=== PATIENT | female | born 1955 | race Caucasian/White ===

== ENCOUNTER 2021-01-18 13:01 | Emergency (ER) | payer OTHER ==
[2021-01-18 15:59] LABS: BASOPHIL 0.9 % (0-2); EOSINOPHIL 0 % (0-7); HCT 44.1 % (37.0-47.0); HGB 14.1 g/dl (12.5-16.0); LYMPHOCYTE 21.2 % (15-48); MCH 29.9 pg (25.0-31.0); MCV 93.6 fL (78.0-100.0); MONOCYTE 13.4 % (0-12); MPV 8.9 fL (6.0-9.5); NEUTROPHIL 63.3 % (41-80); NRBC 0; PLT 162 K/uL (150-400); RBC 4.71 M/uL (4.20-5.40); RDW 15.1 % (11.5-14.0); WBC 3.4 K/uL (4.0-10.5)
[2021-01-18 16:23] LABS: ALBUMIN 3.3 g/dL (3.4-5.0); BILIRUBIN - TOTAL 0.4 mg/dL (0.2-1.0); BUN/CREAT RATIO (CALC) 22.6 RATIO; CREATININE 0.93 mg/dL (0.51-0.95); GLOBULIN (CALCULATION) 3.3 g/dL; POTASSIUM 3.9 mmol/L (3.5-5.1); TOTAL PROTEIN 6.6 g/dL (6.4-8.2)
== END 2021-01-18 19:07 | disposition home or self-care (01) ==
LOC: FER 13:01
PROVIDERS: Nurse Practitioner Family
DX: U07.1 COVID-19 (principal); M25.511 Pain in right shoulder; I10 Essential (primary) hypertension; Z88.6 Allergy status to analgesic agent
CPT/HCPCS: 36415; 71045; 72100; 73502; 80053; 85025; J1100; J7030; M0243; Q0244; U0002

== ENCOUNTER 2021-03-10 17:47 | Emergency (ER) | payer OTHER ==
[2021-03-10] MEDS ORDERED: CEPHALEXIN500 MG PO (19:01)
== END 2021-03-10 19:13 | disposition home or self-care (01) ==
LOC: FER 17:47
DX: S81.812A Laceration without foreign body, left lower leg, initial encounter (principal); I10 Essential (primary) hypertension; Z88.6 Allergy status to analgesic agent; Z23 Encounter for immunization; W22.8XXA Striking against or struck by other objects, initial encounter; Y92.009 Unspecified place in unspecified non-institutional (private) residence as the place of occurrence of the external cause
CPT/HCPCS: 90471; 90715; 99283